=== PATIENT | female | born 1975 | race African-American/Black ===

== ENCOUNTER 2016-12-04 11:14 | Emergency (ER) ==
[2016-12-04] MEDS ORDERED: ASPIRIN PO STA (11:32)
[2016-12-04 11:44] LABS: MANUAL DIFF NEEDED? NO
[2016-12-04 11:46] LABS: BASO% 0.6 % (0.0-0.8); EOS# 0.14 X1000 (0.0-0.7); EOS% 1.6 % (0.0-10.0); HEMATOCRIT 36.5 % (37.0-47.0); IMM GRAN# 0.01 X1000 (0.0-0.04); IMM GRAN% 0.1 % (0.0-0.5); LYMPH# 3.34 X1000 (1.2-3.4); LYMPH% 37.1 % (20.5-51.1); MCH 27.8 PG (27-31); MCHC 32.9 g/dL (33-37); MCV 84.5 FL (81-99); MONO# 0.67 X1000 (0.11-0.59); MONO% 7.4 % (1.7-9.3); NEUT% 53.2 % (42.2-75.2); PLT 322 X1000 (130-400); RBC 4.32 XMIL (4.2-5.4)
--- NOTE | 2016-12-04 11:49 | PROVIDER DOCUMENTATION ---
HPI-Chest Pain - General Source: patient - History of Present Illness-CP Location: reports: other (left anterior, just below the breast) Chest Pain Radiation: reports: no radiation Quality of Pain: reports: stabbing Severity in ED: mild Onset/Duration: 3 days ago Timing: still present, intermittent Context/Activities at Onset: denies: light activity, moderate activity, vigorous activity, recent emotional stress, recent physical stress, recent trauma history, possible bad food, cold exposure, eating, out of country travel , rest, sleep, sexual activity Modifying Factors: improves with: breathing, coughing. worse with: analgesics, antacids, cold/heat therapy, defecating, eating, exercise, immobilization, lying down, massage, movement, other medication, palpation, rest, urinating, vomiting Associated Symptoms: denies: abdominal pain, back pain, diaphoresis, dizziness, edema, fatigue, fever/chills, headache, heartburn, nausea, rash, shortness of breath, swelling/lump in chest, syncope, vomiting, weakness Nitro Today/Relief: no nitro taken today Aspirin Treatment Today: no aspirin today Prior Chest Pain/Cardiac Workup: reports: no prior chest pain, no prior cardiac workup Similar Symptoms Previously?: No Recently Seen Here or By Another Healthcare Provider: No <Yazmin Bonilla - Last Filed: 12/04/16 14:11> <Azael Wallace - Last Filed: 12/04/16 14:14> - General Chief Complaint: Chest Pain Stated Complaint: CHEST PAIN Time Seen by Provider: 12/04/16 11:35 Allergies/Adverse Reactions: Patient Allergies Allergy/AdvReac Type Severity Reaction Status Date / Time latex Allergy Mild RASH Verified 12/04/16 11:23 Home Medications: Home Medication List Medication Instructions Recorded Confirmed Last Taken Type Azithromycin [Zithromax Z-Ton] 250 mg PO DIRECTED #1 pkg 07/19/16 Unknown Rx Benzonatate [Tessalon] 100 mg PO TID PRN PRN #20 capsule 07/19/16 Unknown Rx Famotidine [Pepcid] 20 mg PO DAILY #20 tablet 12/04/16 Unknown Rx Ibuprofen [Motrin] 800 mg PO Q8H PRN PRN #20 tablet 12/04/16 Unknown Rx Methocarbamol [Robaxin] 500 mg PO BID #14 tablet 12/04/16 Unknown Rx - History of Present Illness-CP Nature of Presenting Problem: 41 y/o AAF c hx of anxiety, no cardiac disease, c/o left anterior chest pain, worse with a deep breath or with coughing. Pain is intermittent, no radiation. Denies nausea, vomiting, diaphoresis, or sob. No recent illnesses. Pain is stabbing in nature, no pre-arrival treatments. Has not taken and aspirin today. Current ppd smoker. (Yazmin Bonilla) Review of Systems - Adult - REVIEW OF SYSTEMS - ADULT Constitutional: reports: no symptoms reported. denies: chills, fever, fatique Eyes: reports: no symptoms reported. denies: decreased vision, blurred vision, double vision, eye pain Ears, Nose, Mouth & Throat: reports: no symptoms reported. denies: ear pain, nose pain, throat pain Cardiovascular: reports: see HPI, chest pain. denies: irregular heart rate, palpitations Respiratory: reports: no symptoms reported. denies: cough, shortness of breath , wheezing Gastrointestinal: reports: no symptoms reported. denies: abdominal pain, diarrhea, nausea, vomiting Genitourinary: reports: no symptoms reported. denies: dysuria, discharge, frequency, incontinence Musculoskeletal: reports: no symptoms reported. denies: muscle aches Integumentary: reports: no symptoms reported. denies: rash Neurological: reports: no symptoms reported. denies: dizziness/vertigo, headache/migraines Psychiatric: reports: no symptoms reported Endocrine: reports: no symptoms reported Hematologic/Lymphatic: reports: no symptoms reported Allergic/Immunologic: reports: no symptoms reported All Other Systems: Reviewed and Negative <Yazmin Bonilla - Last Filed: 12/04/16 14:11> Past History - Adult - PAST MEDICAL HISTORY-ADULT Review of Records: reports: Old Records Reviewed, Nursing Assessment Review, Medications Reviewed, Social history reviewed & non-contributory. Major Childhood Illnesses: reports: denies history Cardiovascular: reports: denies history Respiratory: reports: denies history Gastrointestinal: reports: GERD Obstetrical/Gynecological: reports: denies history Genitourinary: reports: denies history Musculoskeletal: reports: denies history Neurological: reports: denies history Psychiatric: reports: anxiety Endocrine/Immune: reports: denies history Other Conditions: reports: denies history - PRIOR SURGERIES/PROCEDURES Surgical/Procedure History: reports: hysterectomy - IMMUNIZATION STATUS Childhood Immunizations: See Nurse Assessment Flu Vaccine: See Nurse Assessment - FAMILY HISTORY Family History: CVA/TIA - SOCIAL HISTORY Smoking: greater than 1 pack/day Provider spent 3-5 mins advising pt. on dangers of tobacco.: Discussed manners to quit use, and f/u contacts for add'l counseling. Substance Use: none/never Alcohol Use Frequency: never <Yazmin Bonilla - Last Filed: 12/04/16 14:11> Physical Exam-General - PHYSICAL EXAM-ADULT Initial Vital Signs Reviewed: Yes - CONSTITUTIONAL General Appearance: appears well, alert, no apparent distress - EYES Eyes: PERRL/EOMI, pink conjunctivae - HEAD, EARS, NOSE, MOUTH & THROAT HENMT: normocephalic/atraumatic, moist mucous membranes, normal ENT inspection - NECK Neck: non-tender, full range of motion, supple, normal inspection. negative: lymphadenopathy - RESPIRATORY Respiratory: chest non-tender, lungs clear, normal breath sounds, no pleuratic chest pain, no respiratory distress, no accessory muscle use. negative: respiratory distress, decreased breath sounds, accessory muscle use, crackles, rales, rhonchi, wheezing - CARDIOVASCULAR Cardiovascular: normal peripheral pulses, regular rate, rhythm, no edema, no gallop, no JVD, no murmur - GASTROINTESTINAL (ABDOMEN) Abdominal Exam: normal bowel sounds, non tender, soft, no organomegaly, no pulsatile mass. negative: abdominal bruit, abnormal bowel sounds, distended, guarding, rigid, rebound, tenderness - MUSCULOSKELETAL Back Exam: normal inspection Extremity: normal gait - SKIN Integumentary: normal color, normal turgor, warm/dry - NEUROLOGIC Neurologic: grossly normal, no motor/sensory deficits - PSYCHIATRIC Psych/Mental Status: normal mood/affect, normal thought content, normal thought process, oriented x 3 <Yazmin Bonilla - Last Filed: 12/04/16 14:11> Progress - XRAY 1 XRAY: Bilateral XRAY Study: Chest Impression: Abnormal (incrased marking at the right base, consistent with previous chest xray, more likely fibrosis than acute infiltrate per Dr. Still, radiology) <Yazmin Bonilla - Last Filed: 03/15/17 14:11> - EKG 1 Time of EKG reading by physician:: 11:23 EKG Read and Signed by:: Hector Shea Rate: 91 Rhythm: NSR [place]: normal QRS: normal NM Interval: normal ST Wave: normal 2 Time of EKG reading by physician:: 14:13 EKG Read and Signed by:: Hector Shea Rate: 78 Rhythm: NSR [place]: normal QRS: normal NM Interval: normal ST Wave: normal <Azael Wallace - Last Filed: 12/04/16 14:14> - PLAN OF CARE/RESULTS Progress/Plan/Lab Results: Vital Signs Temp Pulse Resp BP Pulse Ox 12/04/16 13:39 81 23 114/80 100 12/04/16 12:44 80 24 131/89 94 L 12/04/16 12:10 88 14 134/98 100 12/04/16 11:29 93 H 21 130/74 96 12/04/16 11:19 97.6 F 95 H 18 137/88 96 latex Allergy (Mild, Verified 12/04/16 11:23) RASH Azithromycin [Zithromax Z-Ton] 250 mg PO DIRECTED #1 pkg 07/19/16 Benzonatate [Tessalon] 100 mg PO TID PRN PRN #20 capsule 07/19/16 Laboratory 12/04/16 12/04/16 12/04/16 13:29 13:29 11:35 WBC RBC Hgb Hct MCV MCH MCHC RDW Std Deviation Plt Count MPV Immature Gran % (Auto) Neut % (Auto) Lymph % (Auto) [place] % (Auto) Eos % (Auto) Baso % (Auto) Immature Gran # (Auto) Neut # (Auto) Lymph # (Auto) [place] # (Auto) Eos # (Auto) Baso # (Auto) PT 12.2 INR 0.87 APTT (Factor Assay) 32.8 D-Dimer 0.26 Sodium Potassium Chloride Carbon Dioxide Anion Gap BUN Creatinine Estimated GFR/1.73 m2 BUN/Creatinine Ratio Glucose Calculated Osmolality Calcium Magnesium Total Bilirubin AST ALT Alkaline Phosphatase Creatine Kinase 63 Troponin T < 0.010 Mpq-G-Lswobttfalt Pept Total Protein Albumin Globulin Albumin/Globulin Ratio 12/04/16 12/04/16 12/04/16 11:35 11:35 11:35 WBC 9.00 RBC 4.32 Hgb 12.0 Hct 36.5 L MCV 84.5 MCH 27.8 MCHC 32.9 L RDW Std Deviation 17.7 H Plt Count 322 MPV 10.0 Immature Gran % (Auto) 0.1 Neut % (Auto) 53.2 Lymph % (Auto) 37.1 [place] % (Auto) 7.4 Eos % (Auto) 1.6 Baso % (Auto) 0.6 Immature Gran # (Auto) 0.01 Neut # (Auto) 4.79 Lymph # (Auto) 3.34 [place] # (Auto) 0.67 H Eos # (Auto) 0.14 Baso # (Auto) 0.05 PT INR APTT (Factor Assay) D-Dimer Sodium Potassium Chloride Carbon Dioxide Anion Gap BUN Creatinine Estimated GFR/1.73 m2 BUN/Creatinine Ratio Glucose Calculated Osmolality Calcium Magnesium Total Bilirubin AST ALT Alkaline Phosphatase Creatine Kinase Troponin T < 0.010 Qhw-A-Oqqsgidnkew Pept 24 Total Protein Albumin Globulin Albumin/Globulin Ratio 12/04/16 11:35 WBC RBC Hgb Hct MCV MCH MCHC RDW Std Deviation Plt Count MPV Immature Gran % (Auto) Neut % (Auto) Lymph % (Auto) [place] % (Auto) Eos % (Auto) Baso % (Auto) Immature Gran # (Auto) Neut # (Auto) Lymph # (Auto) [place] # (Auto) Eos # (Auto) Baso # (Auto) PT INR APTT (Factor Assay) D-Dimer Sodium 137 Potassium 3.4 L Chloride 104 Carbon Dioxide 23 L Anion Gap 10 BUN 9 Creatinine 0.6 Estimated GFR/1.73 m2 > 60 BUN/Creatinine Ratio 15 Glucose 102 Calculated Osmolality 273 Calcium 8.9 Magnesium 1.8 Total Bilirubin 0.20 AST 16 ALT 11 Alkaline Phosphatase 85 Creatine Kinase 68 Troponin T Lhc-T-Octtiugcidt Pept Total Protein 7.2 Albumin 4.0 Globulin 3.0 Albumin/Globulin Ratio 1.0 Orders Category Date Time Status Cardiac Monitoring DIRECTED Care 12/04/16 11:32 Active Oxygen Therapy- ED Nursing DIRECTED Care 12/04/16 11:32 Active Saline Loc NOW Care 12/04/16 11:32 Active CHEST-2 VIEWS [RAD] Stat Exams 12/04/16 11:32 Completed CBC WITH ELECTRONIC DIFF [HEME] Stat Lab 12/04/16 11:35 Completed CK PROFILE [SP CHEM] Stat Lab 12/04/16 11:35 Completed CK PROFILE [SP CHEM] Stat Lab 12/04/16 13:29 Completed COMPREHENSIVE METABOLIC PANEL [CHEM] Stat Lab 12/04/16 11:[address] D-DIMER [address] [COAG] Stat Lab 12/04/16 11:35 Completed MAGNESIUM [CHEM] Stat Lab 12/04/16 11:35 Completed PRO B-NATRIURETIC PEPTIDE Stat Lab 12/04/16 11:35 Completed [address]IME WITH INR PL [COAG] Stat Lab 12/04/16 11:[address] [COAG] Stat Lab 12/04/16 11:35 Completed TROPONIN T Stat Lab 12/04/16 11:35 Completed TROPONIN T Stat Lab 12/04/16 13:29 Completed Aspirin Med 12/04/16 11:32 Discontinued 325 mg PO STAT STA EKG [EKG] Stat Ther 12/04/16 11:32 Draft EKG [EKG] Stat Ther 12/04/16 13:07 Draft (Yazmin Bonilla) Departure - Departure Time of Disposition Order: 14:11 Certified Medical Emergency: Emergent <Yazmin Bonilla - Last Filed: 12/04/16 14:11> <Azael Wallace - Last Filed: 12/04/16 14:14> - Departure DIAGNOSIS: Pleuritic chest pain, Chest pain at rest Disposition: HOME 01 Condition: Stable Additional Instructions: Follow up with Dr. Oshea, cardiology ED Follow Up Instructions: You have been treated by a care provider in the Emergency Department. These instructions are being provided to you so you can have an understanding of how to care for yourself upon discharge. Upon discharge from the Emergency Department, you are responsible for making arrangements for follow-up care by a physician of your choice. Take all prescribed medications as directed. Return to the Emergency Department immediately for any new or worsening symptoms. You may call the Physician Referral phone number at [phone] to obtain a list of Physicians who are taking new patients. Prescriptions: Ibuprofen [Motrin] 800 mg PO Q8H PRN PRN #20 tablet PRN Reason: inflammation Famotidine [Pepcid] 20 mg PO DAILY #20 tablet Methocarbamol [Robaxin] 500 mg PO BID #14 tablet Referrals: Glen Barlow MD [Primary Care Provider] - Benitez Oshea MD [STAFF PHYSICIAN] - Attestation - Physician/ FREDI Attestation Patient care was provided by Advanced Practice Provider:: Yes Advanced Practice Provider:: Yazmin Bonilla Advanced Practice Provider documentation review:: The Mid-level provider documentation, treatment plan and medical decision making was reviewed by the physician who agrees with all treatment and medical decision making by the MLP. <Yazmin Bonilla - Last Filed: 12/04/16 14:11> Physician Attestation
[2016-12-04 12:00] LABS: INR 0.87 (0.86-1.15); PROTIME 12.2 Seconds (12.1-15.5)
[2016-12-04 12:01] LABS: PTT PL 32.8 Seconds (22.6-43.9)
[2016-12-04 12:07] LABS: AGAP 10; ALKALINE PHOSPHATASE 85 U/L (32-104); BUN 9 mg/dL (8-22); CALCIUM 8.9 mg/dL (8.8-10.2); CHLORIDE 104 mmol/L (98-107); CK PROFILE 68 U/L (24-173); COSMO 273; GOT 16 U/L (10-30); GPT 11 U/L (10-36); MAGNESIUM 1.8 mg/dL (1.5-2.7); POTASSIUM 3.4 mmol/L (3.5-5.1); SODIUM 137 mmol/L (136-145); TCO2 23 mmol/L (25-35); TOTAL PROTEIN 7.2 g/dL (6.3-8.3)
--- NOTE | 2016-12-04 12:46 | Diag Imaging Result Document ---
PROCEDURE NAME: CHEST-2 VIEWS - 12/04/2016 FRONTAL AND LATERAL CHEST, TWO VIEWS: COMPARISON: 07/19/2016. FINDINGS: The lungs are well expanded. The heart is not enlarged. The vessels are not distended. No pleural effusions. Nodular parenchyma in the right base persist. There may be associated fibrosis. No consolidation. Mild scoliosis. IMPRESSION: Increased markings in the right base have an appearance similar to the prior exam and thus may be fibrosis rather than an acute infiltrate.
[2016-12-04 13:39] VITALS: BP 114/80
--- NOTE | 2016-12-04 13:51 | EKG Report ---
Test Performed on : 12/04/2016 11:23:23 AM Test Reason : CHEST PAIN Blood Pressure : / mmHG Vent. Rate : 091 BPM Atrial Rate : 091 BPM P-R Int : 156 ms QRS Dur : 074 ms QT Int : 390 ms P-R-T Axes : 054 043 040 degrees QTc Int : 479 ms Normal sinus rhythm. Normal ECG When compared with ECG of 19-JUL-2016 19:15, No significant change was found Unconfirmed Result
--- NOTE | 2016-12-04 14:04 | EKG Report ---
Test Performed on : 12/04/2016 1:55:07 PM Test Reason : cp Blood Pressure : / mmHG Vent. Rate : 078 BPM Atrial Rate : 078 BPM P-R Int : 166 ms QRS Dur : 070 ms QT Int : 398 ms P-R-T Axes : 049 053 048 degrees QTc Int : 453 ms Normal sinus rhythm. Normal ECG When compared with ECG of 04-DEC-2016 11:23, (Unconfirmed) No significant change was found Unconfirmed Result
== END 2016-12-04 14:45 | disposition home or self-care (01) ==
LOC: P.ED 11:14
DX: R07.81 Pleurodynia (principal); R05 Cough; F17.210 Nicotine dependence, cigarettes, uncomplicated; Z71.6 Tobacco abuse counseling; Z79.899 Other long term (current) drug therapy; Z82.3 Family history of stroke
CPT/HCPCS: 71020; 80053; 82550; 83735; 83880; 84484; 85025; 85379; 85610; 85730; 93005; 99284

== ENCOUNTER 2018-12-14 15:21 | Inpatient (IN) ==
[2018-12-14] MEDS ORDERED: DUONEB (A & A) INH ONE (16:19)
[2018-12-14 16:29] LABS: BILIRUBIN URINE 2+ (NEGATIVE); BLOOD URINE TRACE (NEGATIVE); CLARITY CLEAR (CLEAR); COLOR YELLOW; GLUCOSE URINE NEGATIVE (NEGATIVE); KETONE URINE TRACE mg/dL (NEGATIVE); LEUKOCYTES URINE TRACE (NEGATIVE); NITRITE URINE NEGATIVE (NEGATIVE); PROTEIN URINE TRACE mg/dL (NEGATIVE); SP GRAVITY URINE 1.015; UROBILINOGEN URINE 4 mg/dL
[2018-12-14 16:30] LABS: URINE BACTERIA 1+ /HFP; URINE CAST NONE SEEN /LPF; URINE CRYSTAL NONE SEEN /HPF; URINE EPITHELIAL CELLS <10 /HPF (<10); URINE RBC <10 /HPF (<10); URINE SOURCE CLEAN CATCH; URINE WBC <10 /HPF (<10); URINE YEAST NONE SEEN /HPF
--- NOTE | 2018-12-14 16:43 | Diag Imaging Result Doc PS360 ---
EXAM: CHEST-2 VIEWS HISTORY: HX COPD/ASTHMA CAME W/ PRODUCTIVE COUGH TECHNIQUE: Chest two views COMPARISON: 12/04/2016 FINDINGS: The lungs are hyperexpanded. The heart is not enlarged. The vessels are not distended. There are mild increased markings in the right lung base similar to the prior study and consistent with scarring. No consolidation. No pleural effusions. IMPRESSION: No pneumonia. Electronically signed by Lokesh Still 12/14/2018 4:41 PM
--- NOTE | 2018-12-14 16:44 | Diag Imaging Result Doc PS360 ---
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 FINDINGS: No free air beneath the diaphragm. There is stool throughout the colon. No organomegaly. No foreign body. There are several pelvic phleboliths. IMPRESSION: Constipation Electronically signed by Lokesh Still 12/14/2018 4:42 PM
[2018-12-14 16:50] LABS: BASO# 0.04 X1000 (0.0-0.2); BASO% 0.3 % (0.0-0.8); EOS# 0.16 X1000 (0.0-0.7); EOS% 1.4 % (0.0-10.0); HEMATOCRIT 39.6 % (37.0-47.0); HEMOGLOBIN 13.8 g/dL (12.0-16.0); IMM GRAN# 0.02 X1000 (0.0-0.04); IMM GRAN% 0.2 % (0.0-0.5); LYMPH# 2.79 X1000 (1.2-3.4); LYMPH% 24.1 % (20.5-51.1); MCHC 34.8 g/dL (33-37); MCV 83.2 FL (81-99); MONO% 8.6 % (1.7-9.3); MPV 9.7 FL (7.4-10.4); NEUT# 7.57 X1000 (1.4-6.5); NEUT% 65.4 % (42.2-75.2); PLT 256 X1000 (130-400); RBC 4.76 XMIL (4.2-5.4); WBC 11.58 X1000 (4.8-10.8)
[2018-12-14 17:05] LABS: INFLUENZA A NEGATIVE (NEGATIVE); INFLUENZA B NEGATIVE (NEGATIVE)
[2018-12-14 17:12] LABS: AGAP 14; ALBUMIN 3.9 g/dL (3.5-5.0); ALKALINE PHOSPHATASE 472 U/L (32-104); BUN 6 mg/dL (8-22); CALCIUM 9.1 mg/dL (8.8-10.2); CHLORIDE 100 mmol/L (98-107); COSMO 277; CREATININE 0.6 mg/dL (0.5-0.9); ESTIMATED GFR > 60; GLUCOSE 106 mg/dL (70-104); GOT 341 U/L (10-30); GPT 656 U/L (10-36); POTASSIUM 3.7 mmol/L (3.5-5.1); SODIUM 140 mmol/L (136-145); TCO2 26 mmol/L (25-35); TOTAL PROTEIN 8.1 g/dL (6.3-8.3)
[2018-12-14] MEDS ORDERED: NS 1,000 ML IV ONE (17:22)
--- NOTE | 2018-12-14 18:03 | PROVIDER DOCUMENTATION ---
This chart was entered by Damaris Rodriguez Scribe, acting as scribe for Davina Brower MD. HPI-General Adult - General Chief Complaint: Back Pain Stated Complaint: BACK PAIN Time Seen by Provider: 12/14/18 16:05 Source: patient Allergies/Adverse Reactions: Patient Allergies Allergy/AdvReac Type Severity Reaction Status Date / Time latex Allergy Mild RASH Verified 12/04/16 11:23 Home Medications: Home Medication List Medication Instructions Recorded Confirmed Last Taken Type Azithromycin [Zithromax Z-Ton] 250 mg PO DIRECTED #1 pkg 07/19/16 Unknown Rx Benzonatate [Tessalon] 100 mg PO TID PRN PRN #20 capsule 07/19/16 Unknown Rx Famotidine [Pepcid] 20 mg PO DAILY #20 tablet 12/04/16 Unknown Rx Ibuprofen [Motrin] 800 mg PO Q8H PRN PRN #20 tablet 12/04/16 Unknown Rx Methocarbamol [Robaxin] 500 mg PO BID #14 tablet 12/04/16 Unknown Rx Azithromycin [Zithromax Z-Ton] 250 mg PO DIRECTED #1 pkg 12/14/18 Unknown Rx Prednisone 40 mg PO DAILY 5 Days #5 tab 12/14/18 Unknown Rx - History of Present Illness -Gen Adult Nature of Presenting Problems: 43 yof presents to ed with cc of left flank pain. denies dsyuria. Pt also reports 2 day of cough, congestion. Reports achy with yellow production. 4/10 pain non radiating. Denies dysuria. Pt also reports to be sob and weak. Review of Systems - Adult - REVIEW OF SYSTEMS - ADULT Constitutional: reports: other (weakness). denies: chills, fever, fatique Eyes: reports: no symptoms reported Ears, Nose, Mouth & Throat: reports: sinus problem. denies: ear pain, throat pain Cardiovascular: denies: chest pain, irregular heart rate, orthopnea, syncope Respiratory: reports: cough, shortness of breath. denies: dyspnea on exertion, pleurisy, wheezing Gastrointestinal: denies: abdominal pain, diarrhea, nausea, vomiting Genitourinary: reports: flank pain. denies: discharge, frequent UTI's, hematuria, hesitency, incontinence, urinary retention, urgency Musculoskeletal: denies: bone pain, back pain, frequent leg cramps, joint pain, joint swelling Integumentary: reports: no symptoms reported Neurological: reports: no symptoms reported Psychiatric: reports: no symptoms reported Endocrine: reports: no symptoms reported Hematologic/Lymphatic: reports: no symptoms reported Allergic/Immunologic: reports: no symptoms reported All Other Systems: Reviewed and Negative Past History - Adult - PAST MEDICAL HISTORY-ADULT Review of Records: reports: Nursing Assessment Review, Medications Reviewed Major Childhood Illnesses: reports: denies history Cardiovascular: reports: denies history Respiratory: reports: denies history Gastrointestinal: reports: GERD Obstetrical/Gynecological: reports: denies history Genitourinary: reports: denies history Musculoskeletal: reports: denies history Neurological: reports: denies history Psychiatric: reports: anxiety Endocrine/Immune: reports: denies history Other Conditions: reports: denies history - PRIOR SURGERIES/PROCEDURES Surgical/Procedure History: reports: hysterectomy - IMMUNIZATION STATUS Childhood Immunizations: See Nurse Assessment Flu Vaccine: See Nurse Assessment - FAMILY HISTORY Family History: CVA/TIA - SOCIAL HISTORY Smoking: cigarettes, greater than 1 pack/day Provider spent 3-5 mins advising pt. on dangers of tobacco.: Discussed manners to quit use, and f/u contacts for add'l counseling. Substance Use: none/never Physical Exam-General - PHYSICAL EXAM-ADULT Initial Vital Signs Reviewed: Yes - CONSTITUTIONAL General Appearance: appears well, alert, no apparent distress - EYES Eyes: PERRL/EOMI, pink conjunctivae - HEAD, EARS, NOSE, MOUTH & THROAT HENMT: moist mucous membranes, normal ENT inspection, TMs normal, pharynx normal - NECK Neck: non-tender, full range of motion, supple, normal inspection - RESPIRATORY Respiratory: chest non-tender, no pleuratic chest pain, no respiratory distress, no accessory muscle use, wheezing (expiratory). negative: crackles, rales, rhonchi, stridor - CARDIOVASCULAR Cardiovascular: normal peripheral pulses, regular rate, rhythm, no edema, no gallop, no JVD, no murmur - GASTROINTESTINAL (ABDOMEN) Abdominal Exam: normal bowel sounds, non tender, soft, no organomegaly, no pulsatile mass - LYMPHATIC Lymphatic: no adenopathy - MUSCULOSKELETAL Back Exam: normal inspection, no CVA tenderness, no vertebral tenderness Extremity: normal range of motion, non-tender, normal gait, normal inspection - SKIN Integumentary: normal color, normal turgor, warm/dry - NEUROLOGIC Neurologic: grossly normal - PSYCHIATRIC Psych/Mental Status: normal mood/affect, normal thought content, normal thought process, oriented x 3 Progress - PLAN OF CARE/RESULTS Progress/Plan/Lab Results: Vital Signs - 8 hr 12/14/18 15:41 Temperature 98.3 F Pulse Rate 93 H Respiratory Rate 18 Blood Pressure 104/65 Orders Category Date Time Status ua [URINALYSIS PL W/POSS RFLX CULT] [URINALYSIS] Stat Lab 12/14/18 15:47 Recei leanne Result Diagrams: 12/14/18 16:30 12/14/18 16:30 - REASSESSMENT Reassessment #1 Time Reassessed: 17:04 Status: improving (DIAGNOSIS: COPD EXACERBATION + CONSTIPATION + ELEVATED LIVER ENZYMES (LIKELY 2/2 TO APAP INGESTION) REVIEW OF LABS REVEALING ELEVATED LIVER ENZYMES; REENGAGED WITH PATIENT SHE HAS BEEN TAKING ABOUT 4G OF TYLENOL FOR THE PAST 3 DAYS (SHE THINKS). STATES SHE TAKES IT TWICE EACH DAY AND EACH TIME IS 4 PILLS AND EACH PILL IS 500MG. WILL GET APAP/SALICYCIC/URINE DRUG SCREEN) Reassessment #2 Time Reassessed: 17:22 Status: other Reassessment #3 Time Reassessed: 17:50 Status: other (SPOKE TO DR. OCAMPO; WILL START NAC AND IF APAP LEVEL LOW OR DEANN L; WILL D/C NAC. WILL GO OBSERVATION AND IF PATIENT DETELERATES, WILL GO INPATIENT STATES. STILL PENDING APAP/SALYCAIC/GGT WELL RUQ US. WILL PLACE IN OBSERVATION ORDERS.) Reassessment #4 Time Reassessed: 18:01 Status: other (SPOKE TO PATIENT SHE HAS HSITORY OF HYPERTENSION, FIBROMYALGIA (SHE TAKES NORCO ACCORDING TO HER AND "SOME NERVE PAIN). PATIENT IS NOT SURE WHAT THE NAME OF HYPERTENSION RX SHE TAKES BUT OTHER MEDICATION BUT ONLY KNOWS SHE IS PRESCRIBED NORCO. I HAVE INFORMED HER TO HAVE FAMILY MEMBER TAKE PICTURES OF THE BOTTLES WITH DRUG NAME. I HAVE INFORMED HER WE WILL HOLD OFF NORCO WELL.) - XRAY 1 XRAY Study: Chest ([facility] [address], [address], [place] [id number] Department of Imaging Patient: ARNALDO PATE Date: 12/14/18MR#: [id number] : 1975ADM Status: REG ERAcct#: [id number] Age/Sex: 43/FRoom/Bed: Loc: P.ED Ordering Physician: Davina Brower MD Family Physician: Glen Barlow MD Reason for Procedure: HX COPD/ASTHMA CAME W/ PRODUCTIVE COUGH Signed EXAM: CHEST-2 VIEWS HISTORY: HX COPD/ASTHMA CAME W/ PRODUCTIVE COUGH TECHNIQUE: Chest two views COMPARISON: 12/04/2016 FINDINGS: The lungs are hyperexpanded. The heart is not enlarged. The vessels are not distended. There are mild increased markings in the right lung base similar to the prior study and consistent with scarring. No consolidation. No pleural effusions. IMPRESSION: No pneumonia. Electronically signed by Lokesh Still 12/14/2018 4:41 PM 12/14/18 1641 Interpreting Physician: Lokesh Still MD Dictated Date/Time: 12/14/18 1640 cc: Davina Brower MD; Glen Barlow MD), Abdomen ([facility] [address] [facility], [address], [place] [phone] Department of Imaging Patient: ARNALDO PATE Date: 12/14/18MR#: [id number] : 1975ADM Status: REG ERAcct#: [id number] Age/Sex: 43/FRoom/Bed: Loc: P.ED Ordering Physician: Davina Brower MD Family Physician: Glen Barlow MD Reason for Procedure: L FLANK CONSTANT ACHY NO RADIATING; NEG CVA TENDER Signed 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 FINDINGS: No free air beneath the diaphragm. There is stool throughout the colon. No organomegaly. No foreign body. There are several pelvic phleboliths. IMPRESSION: Constipation Electronically signed by Lokesh Still 12/14/2018 4:42 PM 12/14/18 1642 Interpreting Physician: Lokesh Still MD Dictated Date/Time: 12/14/18 164 cc: Davina Brower MD; Glen Barlow MD) Departure - Departure Date of Disposition Decision: 12/14/18 Time of Disposition Decision: 17:05 DIAGNOSIS: COPD exacerbation, Constipation, Unintentional Tylenol overdose Disposition: HOME 01 Certified Medical Emergency: Emergent Condition: Stable Additional Freetext Instructions: ED Follow Up Instructions: You have been treated by a care provider in the Emergency Department. These instructions are being provided to you so you can have an understanding of how to care for yourself upon discharge. Upon discharge from the Emergency Department, you are responsible for making arrangements for follow-up care by a physician of your choice. Take all prescribed medications as directed. Return to the Emergency Department immediately for any new or worsening symptoms. You may call the Physician Referral phone number at [phone] to obtain a list of Physicians who are taking new patients and follow up within 7 days. Prescriptions: Prednisone 40 mg PO DAILY 5 Days #5 tab Azithromycin [Zithromax Z-Ton] 250 mg PO DIRECTED #1 pkg Referrals and Follow-Ups: Glen Barlow MD [Primary Care Provider] - - Critical Care Note This patient required my direct & personal management of CC.: No Attestation - Physician/ FREDI Attestation Patient care was provided by Advanced Practice Provider:: No The physician spent face to face time with patient:: Yes Advanced Practice Provider documentation review:: Supervising physician onsite and consulted in the evaluation and care of this patient. The physician did have a face to face encounter with the patient. This chart was documented by the indicated scribe, (Damaris Rodriguez, Vincent) and accurately reflects the services I performed and decisions made by me, Davina Brower MD, as attested by the provider's signature.
[2018-12-14] MEDS ORDERED: D5W IV ONE (18:15)
[2018-12-14] MEDS ORDERED: ACETADOTE IV ONE (18:15)
[2018-12-14] MEDS ORDERED: PREDNISONE PO ONE (18:25)
[2018-12-14] MEDS ORDERED: ZITHROMAX PO ONE (18:25)
[2018-12-14] MEDS ORDERED: MIRALAX PO ONE (18:26)
[2018-12-14 18:28] LABS: ACETAMINOPHEN < 1.2 ug/mL (10-30); GGT 480 U/L (7-32); SALICYLATES < 3.00 mg/dL (3-10)
--- NOTE | 2018-12-14 18:32 | Diag Imaging Result Doc PS360 ---
EXAM: US GB < RUQ (LIMITED) HISTORY: ELEVATED LIVER ENZYMES T.B. 3.7; AST 300 ALT 600 TECHNIQUE: Right upper quadrant ultrasound COMPARISON: None. FINDINGS: Normal pancreatic head. The majority of the pancreas is obscured. No aortic aneurysm. Normal inferior vena cava. No focal hepatic abnormality although there is fatty infiltration. Normal right kidney. No hydronephrosis. No ascites. There are many stones within the gallbladder. The gallbladder is overly distended measuring at least 18 cm in length. The wall is not thickened. The common bile duct measures 5 mm. IMPRESSION: Bullard distended gallbladder containing multiple small stones, but no wall thickening. Fatty liver Electronically signed by Lokesh Still 12/14/2018 6:30 PM
[2018-12-14] MEDS ORDERED: ZITHROMAX ONE (19:25)
[2018-12-14] MEDS ORDERED: PREDNISONE ONE (19:25)
[2018-12-14] MEDS ORDERED: MIRALAX ONE (19:25)
[2018-12-14] MEDS: ZOSYN 3.375 GM in NS 50 ML IV SCH (19:47)
--- NOTE | 2018-12-14 19:52 | HISTORY AND PHYSICAL ---
INITIAL COMPLAINT: Abdominal pain and back pain. DATE OF SERVICE: 12/14/2018. HISTORY OF PRESENT ILLNESS: Per ER records, she is 43. History of hypertension. Complaining of left flank pain, but no dysuria, but she also has cough and congestion, but then she also reports nausea, vomiting, abdominal pain. Her symptoms are kind of, in a sense, all over the place. Her triage complaints were low back pain for 2 days. Her workup really initially was nonspecific; however, when we got lab data back, she had leukocytosis, elevated liver enzymes, and an elevated total bilirubin level. She denies any regular alcohol use. She does admit to some intermittent abdominal pain. She has had episodes several times off and on. She has had these issues off and on for several months. No gallbladder issues previously. Workup suggested acute hepatitis. There was concern over Tylenol toxicity because she has been taking 2 g of Tylenol daily for the last 4 days, but that level was normal, and her ultrasound revealed cholelithiasis with a distended gallbladder, so she was admitted for further treatment. Patient was admitted for treatment. PAST MEDICAL HISTORY: Hypertension. Denies cardiac disease. Denies hypothyroidism. Really fairly nonspecific. PAST SURGICAL HISTORY: She has had a bilateral tubal ligation. FAMILY HISTORY: Gallbladder disease in grandmother. SOCIAL HISTORY: No tobacco or ethanol. ALLERGIES: Latex. MEDICATIONS: List is being completed. PHYSICAL EXAMINATION: VITAL SIGNS: Blood pressure is 104/65, heart rate 72, respiratory rate 20, temperature 98.3 degrees. GENERAL: A well developed female in no acute distress. HEAD: Normocephalic and atraumatic. EYES: Pupils equal, round, and reactive to light. Extraocular movements are intact. EARS, NOSE, THROAT: He has moist mucous membranes. NECK: Supple. CARDIOVASCULAR: Regular rate and rhythm. No murmurs, gallops, or rubs. PULMONARY: Bilateral breath sounds, clear to auscultation. GI: She does have tenderness in her epigastrium, right upper quadrant to some mild degree, but no rebound or guarding. LABORATORY DATA: White count 11. Her AST and ALT were 341 and 656, alkaline phosphatase 472, total bilirubin 3.7. Acetaminophen level point 0.2. Abdominal ultrasound showed an overly distended gallbladder with several stones. ASSESSMENT: This is a pleasant female who has classic association with cholelithiasis. She has a distended gallbladder with numerous stones, although no fercho cholecystitis. I do think she is at risk for that, and I think she is symptomatic from it at this point, plus there is concern that she has choledocholithiasis since she has elevated transaminases, and she may have symptomatic choledocholithiasis. 1. Symptomatic cholelithiasis, rule out choledocholithiasis. We will initiate intravenous fluids, antibiotics, antiemetics, pain medication, and transfer her to [facility] for surgical evaluation, plus or minus she may need a gastrointestinal evaluation, but we will wait on surgical evaluation first, and evaluation for an intraoperative cholangiogram if Dr. Alexander sees fit. We will evaluate for hepatitis as well. 2. Hypertension. Appears to be relatively stable and we will continue to monitor. DISPOSITION: Pending her clinical status. cc: MD Glen Monsivais MD Lynn R. Buckner, MD
[2018-12-14 20:31] LABS: UR AMPHETAMINES QUAL NONE DETECTED (NONE DETECT); UR BARBITUATES QUAL NONE DETECTED (NONE DETECT); UR BENZODIAZEPIN QUAL PRESUMPTIVE POSITIVE (NONE DETECT); UR CANNABINOIDS QUAL NONE DETECTED (NONE DETECT); UR COCAINE QUAL NONE DETECTED (NONE DETECT); UR METHADONE QUAL NONE DETECTED (NONE DETECT); UR METHAMPHETAMINE QUAL NONE DETECTED (NONE DETECT); UR OPIATES QUAL PRESUMPTIVE POSITIVE (NONE DETECT); UR OXYCODONE QUAL NONE DETECTED (NONE DETECT); UR PCP QUAL NONE DETECTED (NONE DETECT); UR PROPOXYPHENE QUAL NONE DETECTED (NONE DETECT); UR TCA QUAL NONE DETECTED (NONE DETECT)
[2018-12-14] MEDS ORDERED: COLACE PO SCH (21:00)
[2018-12-14] MEDS: SODIUM CHLORIDE 0.9% INJ SCH (22:45)
[2018-12-14] MEDS: PROTONIX IV SCH (22:46)
[2018-12-14] MEDS: NS 1,000 ML IV SCH (22:46)
[2018-12-15] MEDS: ZOSYN 3.375 GM in NS 50 ML IV SCH ×4 (01:56→20:27)
[2018-12-15] MEDS ORDERED: FLU VACCINE IM ONE (02:49)
[2018-12-15] MEDS ORDERED: PNEUMOVAX 23 IM ONE (02:52)
[2018-12-15] MEDS: NS 1,000 ML IV SCH ×2 (08:52→20:27)
[2018-12-15] MEDS ORDERED: ZITHROMAX PO SCH (09:00)
[2018-12-15] MEDS ORDERED: PREDNISONE PO SCH (09:00)
[2018-12-15 09:26] LABS: BASO# 0.07 X1000 (0.0-0.2); BASO% 0.5 % (0.0-0.8); EOS# 0.02 X1000 (0.0-0.7); EOS% 0.1 % (0.0-10.0); HEMATOCRIT 38.5 % (37.0-47.0); IMM GRAN# 0.04 X1000 (0.0-0.04); IMM GRAN% 0.3 % (0.0-0.5); LYMPH# 3.01 X1000 (1.2-3.4); LYMPH% 21.7 % (20.5-51.1); MCH 28.3 PG (27-31); MCHC 33.8 g/dL (33-37); MCV 83.9 FL (81-99); MONO% 7.9 % (1.7-9.3); MPV 10.3 FL (7.4-10.4); NEUT# 9.64 X1000 (1.4-6.5); NEUT% 69.5 % (42.2-75.2); PLT 253 X1000 (130-400); RBC 4.59 XMIL (4.2-5.4); RDW 15.9 % (11.5-14.5); WBC 13.88 X1000 (4.8-10.8)
[2018-12-15] MEDS ORDERED: ROBAXIN PO PRN (09:47)
[2018-12-15 09:48] LABS: AGAP 12; ALB/GLOB RATIO 0.9; ALBUMIN 3.5 g/dL (3.5-5.0); ALKALINE PHOSPHATASE 390 U/L (32-104); BUN 7 mg/dL (8-22); CALCIUM 8.8 mg/dL (8.8-10.2); CHLORIDE 105 mmol/L (98-107); COSMO 275; CREATININE 0.6 mg/dL (0.5-0.9); ESTIMATED GFR > 60; GLUCOSE 87 mg/dL (70-104); GOT 228 U/L (10-30); GPT 508 U/L (10-36); POTASSIUM 3.9 mmol/L (3.5-5.1); SODIUM 139 mmol/L (136-145); TCO2 22 mmol/L (25-35); TOTAL BILIRUBIN 3.09 mg/dL (0.20-1.00); TOTAL PROTEIN 7.3 g/dL (6.3-8.3)
[2018-12-15] MEDS: MORPHINE IV PRN ×3 (12:06→20:49)
--- NOTE | 2018-12-15 16:07 | GENERAL SURGERY CONSULTATION ---
DATE: 12/15/2018 REASON FOR CONSULTATION: Symptomatic cholelithiasis. HISTORY OF PRESENT ILLNESS: This is a 43-year-old female with a 2-day history of constant right upper quadrant pain radiating around to her back with associated nausea, vomiting, and subjective fever. No exacerbating or relieving factors. No diarrhea or constipation. Her last bowel movement was yesterday. No prior episodes similar to this. PAST MEDICAL HISTORY: Tubal , hypertension. PAST SURGICAL HISTORY: 1. Surgery for tubal . 2. Bilateral tubal ligation. 3. Surgery on her feet. ALLERGIES: Latex. SOCIAL HISTORY: Negative tobacco or alcohol. FAMILY HISTORY: Reviewed and noncontributory. HOME MEDICATIONS: Robaxin. CURRENT MEDICATIONS: Robaxin, Protonix, Zosyn. REVIEW OF SYSTEMS: Ten systems reviewed and negative except as noted above. PHYSICAL EXAMINATION: Vital Signs: Temperature 98.7 degrees, pulse 76, respirations 20, blood pressure 129/77, O2 saturation 98%. General: Well-developed, well-nourished female in no distress, who looks her stated age. HEENT: Normocephalic, atraumatic. Extraocular muscles intact. Pupils equal, round, reactive to light. Sclerae anicteric. Moist mucous membranes. Hearing grossly normal. Neck: Supple. No thyromegaly. CV: Regular rate and rhythm. Respiratory: Bilateral equal breath sounds. No work of breathing. Gastrointestinal: Soft, nondistended. Minimally tender in right upper quadrant. No rebound or guarding. No organomegaly or mass. No hernias. Extremities: No clubbing, cyanosis, or edema. Skin: Warm and dry. No rash. Musculoskeletal: Moves all extremities equally and well. LABORATORY: White cell count 13.9, hemoglobin 13, hematocrit 38, platelet count 253,000. Electrolytes reviewed and notable for total bilirubin of 3.09, AST 228, ALT 508, alkaline phosphatase 390, GGT 480. Urinalysis reviewed and unremarkable. IMAGING: An abdominal ultrasound was reviewed and shows numerous gallstones in the gallbladder and which it is also overly distended at 18 cm in length. However, the wall is not thickened. Common bile duct measures 5 mm. ASSESSMENT AND PLAN: This is a 43-year-old female with gallstones, at least symptomatic cholelithiasis and possible early acute cholecystitis. We will make her NPO tonight and plan laparoscopic cholecystectomy with cholangiogram tomorrow. I discussed the risks, benefits, alternatives with her including bleeding, infection, injury to surrounding organs such as the bile duct or intestines, and other imponderables. She understands and agrees to proceed. cc: Jim Loo MD
--- NOTE | 2018-12-15 17:52 | PROGRESS NOTE ---
DATE: 12/15/2018 SUBJECTIVE: This is a 43-year-old with history of hypertension, complaining of left flank pain, but no dysuria, also cough and congestion. Reported nausea, vomiting, abdominal pain. Her symptoms were in a sense all over the place. Complaining of pain in her back as well. In the end, it appears that she has symptomatic cholelithiasis, and so I think the plan is for surgery tomorrow. OBJECTIVE: General: On exam today, she is awake and alert. Vital Signs: Temperature 98.7 degrees, pulse 75, respirations 20, blood pressure 127/85. Eyes: Pupils are equal and round. Lungs: Clear in all lung arce. Cardiovascular: Regular rhythm and rate without murmur or S3. Abdomen: She has some tenderness in the epigastric area. LABS: White count is 13,880, hematocrit is 38, platelet count is 253,000. Sodium 139, potassium 3.9, chloride 105, BUN 7, creatinine 0.6, and as noted her liver enzymes seem to have come down a bit. She had elevation of GGT of 480, AST of 341, ALT 656, and alkaline phosphatase was 472. Her urine drug screen is positive for opiates and positive for benzodiazepines. cc: Luis Paulino MD
--- NOTE | 2018-12-15 17:54 | PROGRESS NOTE ---
DATE: 12/15/2018 SUBJECTIVE: A patient of Dr. Glen Barlow. A 43-year-old with history of hypertension complaining of left flank pain, but no dysuria. Also a cough and congestion, reported nausea, vomiting, and abdominal pain. Her triage complaints were low back pain for 2 days. Workup initially was nonspecific. However, we got the data back, and had leukocytosis, elevated liver enzymes and elevated total bilirubin. Denies any regular alcohol use. She does admit to some intermittent abdominal pain in the past. She has had episodes several times off and on. She has had 3 episodes off and on for several months. No gallbladder issues previously. Workup suggested acute hepatitis. There was concern of Tylenol toxicity because she was taking 2 g of Tylenol daily for 4 days, but her level was normal. Her ultrasound revealed cholelithiasis and distended gallbladder so admitted for further evaluation and treatment. She appears to have symptomatic cholelithiasis and need to rule out choledocholithiasis. Continue present antibiotics and IV fluids and antiemetics. Surgery to evaluate. OBJECTIVE: On exam today, temperature 98.7 degrees, pulse 75, respirations 20, and blood pressure 127/85. Pupils are equal and round. Lungs are clear in all lung arce. Cardiovascular exam with regular rhythm and rate without murmur or S3. Abdomen is soft. Skin is warm and dry. LABORATORY: White blood cell count 61574, hematocrit is 38, and platelet count is 253,000. Sodium 139, potassium 3.9, chloride 105, bicarb 22, BUN 7, creatinine 0.6. Transaminases have come down. GGT was 480's down to 228. ALT 656 down to 508. AST 341 to 228. it did go up a little bit to 508. Her alkaline phosphatase did go down from 472 to 390. The drug screen positive for benzodiazepines and opiates. Her chest x-ray had no pneumonia. No infiltrate. No acute pathology. Abdominal x-ray showed some constipation. Abdominal ultrasound show overly distended gallbladder containing multiple stones, but no wall thickening. Fatty liver appreciated. IMPRESSION AND PLAN: Looking over her orders, she is getting morphine 2 mg IV q.4 hours. She is on Robaxin 500 mg b.i.d. p.r.n. She did get her flu vaccination and pneumococcal vaccination. She is on Zofran 4 mg IV q.4 hours p.r.n. nausea, Protonix 40 mg 24 hours. Zosyn 3.375 g IV q.6. cc: Luis Paulino MD MTDD
[2018-12-15] MEDS: PROTONIX IV SCH ×2 (20:48→20:51)
[2018-12-15] MEDS: SODIUM CHLORIDE 0.9% INJ SCH ×2 (20:48→20:51)
[2018-12-16] MEDS: MORPHINE IV PRN ×5 (01:01→20:44)
[2018-12-16] MEDS: ZOSYN 3.375 GM in NS 50 ML IV SCH ×4 (01:04→18:37)
[2018-12-16] MEDS: NS 1,000 ML IV SCH ×3 (05:52→20:46)
[2018-12-16] MEDS ORDERED: SENSORCAINE 0.5%-EPI 1:200,000 ONE (07:21)
[2018-12-16] MEDS ORDERED: LR 1,000 ML ONE (07:22)
[2018-12-16] MEDS ORDERED: SODIUM CHLORIDE 0.9% ONE (07:22)
[2018-12-16] MEDS ORDERED: XYLOCAINE-MPF 2% ONE (07:47)
[2018-12-16] MEDS ORDERED: ROBINUL ONE ×3 (07:47→07:52)
[2018-12-16] MEDS ORDERED: QUELICIN (DOSE) ONE (07:47)
[2018-12-16] MEDS ORDERED: DIPRIVAN 1% ONE (07:49)
[2018-12-16] MEDS ORDERED: FENTANYL ONE (07:49)
[2018-12-16] MEDS ORDERED: NEOSPORIN OINTMENT PACKET ONE (08:03)
[2018-12-16] MEDS ORDERED: ZEMURON ONE (08:06)
[2018-12-16] MEDS ORDERED: KETAMINE ONE (08:10)
[2018-12-16] MEDS ORDERED: TORADOL ONE (08:16)
[2018-12-16] MEDS ORDERED: ZOFRAN ONE (08:16)
[2018-12-16] MEDS ORDERED: DECADRON ONE (08:16)
[2018-12-16] MEDS ORDERED: VENTOLIN HFA ONE (08:23)
[2018-12-16] MEDS ORDERED: NEOSTIGMINE ONE (08:31)
[2018-12-16] MEDS ORDERED: DUONEB (A & A) INH ONE (09:15)
[2018-12-16] MEDS: DILAUDID ONE ×2 (09:34→09:38)
--- NOTE | 2018-12-16 09:48 | OPERATIVE NOTE ---
PROCEDURE DATE: 12/16/2018 PREOPERATIVE DIAGNOSIS: Acute cholecystitis. POSTOPERATIVE DIAGNOSES: 1. Acute cholecystitis. 2. Choledocholithiasis. PROCEDURE: Laparoscopic cholecystectomy with operative cholangiogram. SURGEON: Jim Loo MD. ANESTHESIA: General. ESTIMATED BLOOD LOSS: 5 mL. COMPLICATIONS: None apparent. SPECIMENS: Gallbladder. FINDINGS: The gallbladder was very distended and full of stones. The cholangiogram revealed numerous filling defects in the distal common bile duct. The proximal hepatic radicles appeared to fill normally. I did not see any contrast enter into the duodenum. TECHNIQUE: The patient was brought to the operating room and placed supine on the table. General anesthesia was induced. She was prepped and draped in usual sterile fashion. 0.5% Marcaine with epinephrine was used to anesthetize our incisions. An 11 mm incision was made above the umbilicus in the midline. The fascia was exposed and incised sharply. Entry into the peritoneal cavity was obtained under direct vision with the Optiview device. Pneumoperitoneum was established. The camera was inserted. There was no evidence of injury to underlying structures. Three 5 mm incision ports were placed across the epigastric and right upper quadrant under direct vision per usual routine. The gallbladder was visualized and noted to be quite distended and full of stones. It was grasped with an Allis clamp and lifted up superiorly over the liver. The triangle of Calot was then dissected out with the [place] forceps and hook cautery until the critical view was obtained. The gallbladder liver junction was seen. There were only 2 structures entering the gallbladder, the cystic duct and cystic artery. The cystic duct was clipped on the gallbladder side. A ductotomy was made proximal to this with scissors. A 14-gauge Angiocath was passed through the right upper quadrant. The Taut cholangiogram catheter was passed through this into the cystic duct and held in place with a clip. The cholangiogram was performed with findings as noted above. The clip catheter, and Angiocath were removed. 3 clips were placed on the staying inside of the cystic duct. It was divided distal to these with scissors. The cystic artery was clipped proximally and distally and incised between with scissors. The gallbladder was removed from the liver bed using hook cautery obtaining hemostasis along the way. The gallbladder was attempted to be placed in EndoCatch bag but it was too large to completely be submerged in the bag. I then brought the string of the bag and gallbladder up through the umbilical port site. We removed the ports and desufflated the abdomen. The skin of the umbilical incision was elongated with a knife. The fascia was then also incised a couple cm cephalad and this allowed us to remove the gallbladder and bag. I then closed the umbilical fascia with a running 0 Vicryl. The skin was closed with a running 4-0 subcuticular Monocryl and Steri-Strips. There were no apparent complications. She was awakened in stable condition and transferred to the recovery room. cc: Jim Loo MD
--- NOTE | 2018-12-16 09:55 | GASTROENTEROLOGY CONSULTATION ---
DATE: 12/16/2018 REASON FOR CONSULTATION: Choledocholithiasis. HISTORY OF PRESENT ILLNESS: Ms. Katina Joseph is a 43-year-old woman with past medical history of hypertension who presented on 12/14/2018 with 4 days of nausea, vomiting, epigastric pain. Diagnosed with acute cholecystitis on presentation. She reports being in her usual state of health prior to presentation. She denies any prior history of similar symptoms. She does not drink any alcohol. She does smoke 1 pack per day of tobacco. No change in bowel habits, melena, hematemesis. She is not on any blood thinners. During her cholecystectomy Dr. Treadwell did an intraoperative cholangiogram that revealed numerous small stones in the distal common bile duct. She is currently in the PACU in recovery. REVIEW OF SYSTEMS: As per HPI, otherwise 12 point review of systems is negative. PAST MEDICAL HISTORY: History of tubal and hypertension. PAST SURGICAL HISTORY: Surgery for tubal , bilateral tubal ligation, surgery on her feet, laparoscopic cholecystectomy today on 12/16/2018. ALLERGIES: Latex. SOCIAL HISTORY: She smokes 1 pack per day of tobacco. No alcohol or drug use. FAMILY HISTORY: Grandmother had gallstones. HOME MEDICATIONS: Robaxin. PHYSICAL EXAMINATION: VITAL SIGNS: Temperature 97.6 degrees, heart rate 78, respiratory rate 25, blood pressure 114/63, O2 saturation 92%. General: Patient is awake, alert, in no acute distress. HEENT: Sclerae anicteric. Moist mucous membranes. Neck: Supple. No JVD. Cardiac: Regular rate and rhythm. No murmurs, rubs, or gallops. Lungs: Clear to auscultation anteriorly. No wheezing. Abdomen: Incision sites with Steri-Strips. Abdomen is nondistended. Hypoactive bowel sounds. Mildly tender throughout. Extremities: No clubbing, cyanosis, or edema. Neurologic: Nonfocal. LABS: White count of 13.8 from 11.58 on 12/14/2018, hemoglobin 13.0, platelets of 253,000. Sodium 135, potassium 3.9, chloride 105, bicarb 22, BUN 7, creatinine 0.6, glucose 87, total bilirubin of 3.0 from 3.7, GGT of 480, AST of 228 from 341 on 12/14/2018, ALT of 500 from 656, alkaline phosphatase of 390 from 472. Albumin is 3.5, total protein is 7.3. UA shows trace white blood cells, 2+ bilirubin, trace protein. Urine tox positive for opiates and benzodiazepines. Rapid flu is negative. IMAGING: Ultrasound on 12/14/2018 shows overly distended gallbladder containing multiple small stones but no wall thickening, fatty liver. Chest x-ray on 12/14/2018 was unremarkable. ASSESSMENT AND PLAN: Ms. Katina Joseph is a 43-year-old woman who presented with nausea, vomiting, abdominal pain and found to have acute cholecystitis and choledocholithiasis cholecystectomy today. She does have some abnormal LFTs that appear to be downtrending and leukocytosis concerning for possible infection. She is currently on Zosyn for antibiotics and IV fluids. We will plan for ERCP tomorrow with Dr. Duke. We will keep her NPO over midnight. Continue antibiotics, pain medications, IV fluids. We will follow with you. Please call with any questions or concerns.
[2018-12-16] MEDS ORDERED: NORCO-10 PO PRN (10:13)
--- NOTE | 2018-12-16 12:37 | PROGRESS NOTE ---
DATE: 12/16/2018 SUBJECTIVE: Ms Joseph is a little bit lethargic at the present time. She underwent laparoscopic cholecystectomy this morning with operative cholangiogram. Cholangiogram revealed numerous filling defects in the distal common bile duct. Proximal hepatic radicles appeared to fill normally. She had presented with nausea and vomiting and abdominal pain, found to have cholecystitis, choledocholithiasis. Cholecystectomy was done. She had some abnormal LFTs, appear to be downtrending, leukocytosis, concern for possible infection, so she is on Zosyn. Plan is for ERCP I think tomorrow with Dr. Duke. Keep her n.p.o. after night. Continue current antibiotics. OBJECTIVE: Vital signs: Temperature 97.8 degrees, pulse 59, respirations 16, blood pressure 128/72. Eyes: Pupils are equal round. Lungs: Clear in all lung arce. Cardiovascular: Regular rhythm and rate without murmur or S3. Abdomen: Soft. Skin: Warm and dry. Urine output is 2500 mL. ASSESSMENT AND PLAN: Status post laparoscopic cholecystectomy. Plan is for ERCP tomorrow per Dr. Duke. Seems to be doing well. We will check Chem 22 and CBC again in the morning. Liver enzymes have been trending down including alkaline phosphatase, AST and ALT. We will check GGT as well and total bilirubin in the morning. cc: Luis Paulino MD
--- NOTE | 2018-12-16 13:15 | Diag Imaging Result Doc PS360 ---
EXAM: OPERATIVE CHOLANGIOGRAM INDICATION: GALLBLADDER DX TECHNIQUE: COMPARISON: None. FINDINGS: A single spot fluoroscopic view of the opacified common bile duct was provided, which were performed intraoperatively during cholecystectomy by Dr. Jim Loo. There are several filling defects identified in the distal common bile duct likely representing ductal stones. The diameter of the common bile duct is also somewhat increased. No contrast is seen entering small bowel. IMPRESSION: As above. Please correlate with live fluoroscopic imaging. Electronically signed by Hill Madrid 12/16/2018 1:13 PM
[2018-12-16 13:51] LABS: HEPATITIS PROFILE ACUTE SEE COMMENTS
[2018-12-16] MEDS: SODIUM CHLORIDE 0.9% INJ SCH (20:45)
[2018-12-16] MEDS: PROTONIX IV SCH (20:45)
[2018-12-16] MEDS: PERIDEX MT SCH (20:45)
[2018-12-17] MEDS: ZOSYN 3.375 GM in NS 50 ML IV SCH ×4 (00:35→18:06)
[2018-12-17] MEDS: ZOFRAN IV PRN ×4 (01:04→18:01)
[2018-12-17] MEDS: MORPHINE IV PRN ×6 (01:04→22:05)
[2018-12-17] MEDS: NS 1,000 ML IV SCH ×2 (02:33→10:41)
[2018-12-17 06:39] LABS: AGAP 10; ALB/GLOB RATIO 0.9; ALBUMIN 3.2 g/dL (3.5-5.0); ALKALINE PHOSPHATASE 364 U/L (32-104); BUN 4 mg/dL (8-22); CALCIUM 8.7 mg/dL (8.8-10.2); CHLORIDE 108 mmol/L (98-107); COSMO 279; CREATININE 0.6 mg/dL (0.5-0.9); ESTIMATED GFR > 60; GLUCOSE 110 mg/dL (70-104); GOT 317 U/L (10-30); GPT 406 U/L (10-36); POTASSIUM 3.8 mmol/L (3.5-5.1); SODIUM 141 mmol/L (136-145); TCO2 23 mmol/L (25-35); TOTAL BILIRUBIN 1.96 mg/dL (0.20-1.00); TOTAL PROTEIN 6.7 g/dL (6.3-8.3)
[2018-12-17] MEDS: PERIDEX MT SCH ×2 (09:32→22:00)
[2018-12-17 09:57] LABS: BASO# 0.03 X1000 (0.0-0.2); BASO% 0.2 % (0.0-0.8); EOS% 0.7 % (0.0-10.0); HEMATOCRIT 30.9 % (37.0-47.0); HEMOGLOBIN 10.4 g/dL (12.0-16.0); IMM GRAN# 0.04 X1000 (0.0-0.04); IMM GRAN% 0.3 % (0.0-0.5); LYMPH# 3.42 X1000 (1.2-3.4); LYMPH% 24.6 % (20.5-51.1); MCH 28.7 PG (27-31); MCHC 33.7 g/dL (33-37); MCV 85.1 FL (81-99); MONO# 1.12 X1000 (0.11-0.59); MONO% 8.1 % (1.7-9.3); MPV 11.4 FL (7.4-10.4); NEUT# 9.19 X1000 (1.4-6.5); NEUT% 66.1 % (42.2-75.2); PLT 241 X1000 (130-400); RBC 3.63 XMIL (4.2-5.4); RDW 15.6 % (11.5-14.5)
--- NOTE | 2018-12-17 12:06 | GASTROENTEROLOGY PROGRESS NOTE ---
DATE: 12/17/2018 ADMITTING PHYSICIAN: Dr. Luis Paulino. PRIMARY CARE DOCTOR: Dr. Geln Barlow. SUBJECTIVE: Patient resting in bed. Her family was at bedside. The patient complains of soreness in the perineal region. One of the stitches from the recent surgery has mild drainage. She denies any fevers, rigors, chills. She denies any nausea or vomiting. She has not moved her bowels. She was initially n.p.o. for ERCP today, but after discussion with Dr. Duke since her labs are trending down and she is stable, the ERCP was canceled today. We will schedule for tomorrow by Dr. Duke in the morning. I have discussed the risks, benefits, indications, alternatives to the procedure with the patient and family at bedside. All questions answered. The patient acknowledges and agreed to proceed with ERCP tomorrow. OBJECTIVE: Vital signs: Temperature 98.4 degrees, pulse rate 75, respiratory 16, blood pressure 123/68, satting 90% on room air. Body weight of 230 pounds 4 ounces. BMI 29.7 kg/m2. General Appearance: Moderately built, well-nourished, lying in bed, no acute distress. HEENT: Pale conjunctiva, mild icterus. Neck: Neck is supple. Abdomen: Has discomfort in the perineal region. No rebound or guarding. Extremities: No cyanosis, clubbing. Neurologic: Neuro romero, she is alert, awake, oriented. LABS: Hemoglobin and hematocrit is 10.4 and 30.9, white count of 13.9, platelet count of 241. Sodium 141, potassium 3.8, chloride 100, bicarbonate 23, anion gap 10. BUN of 4, creatinine 0.6, glucose of 110, calcium 8.7. Total bilirubin 0.96, AST 317, ALT 406, alkaline phosphatase 364. Total protein 6.7, albumin 3.2. The liver enzymes are trending down. Bilirubin is trending down. Urine culture showed no growth. IMPRESSION AND PLAN: 1. Choledocholithiasis as seen on intraoperative cholangiogram. In this regard, the patient is going to proceed with endoscopic retrograde cholangiopancreatography tomorrow. The risks, benefits, indications, and alternatives to the procedure were discussed with the patient and family, and all questions were answered. The patient is scheduled to have endoscopic retrograde cholangiopancreatography tomorrow with Dr. Duke. 2. She will continue intravenous pain control, intravenous antibiotics. 3. Gastrointestinal prophylaxis with proton pump inhibitors. 4. We will start on clear liquid diet today. 5. We will check complete blood count and comprehensive metabolic panel in the morning. 6. We will start on bowel regimen with Dulcolax once daily. Above plan discussed with the patient and family and all questions answered. Please call us with any further questions. cc: Shant Sharp MD
--- NOTE | 2018-12-17 13:18 | PROGRESS NOTE ---
DATE: 12/17/2018 SUBJECTIVE: Ms. Joseph is feeling much better. She is awake, alert, and oriented x3. She understands she is going to get an ERCP or EGD today. OBJECTIVE: Temperature 97.9 degrees, pulse 72, respirations 18, blood pressure 130/72. Pupils are equal and round. Lungs are clear in all lung arce. Cardiovascular exam with regular rhythm and rate without murmur or S3. Abdomen is soft. Skin is warm and dry. Urine output 3700 mL. ASSESSMENT AND PLAN: 1. Choledocholithiasis seen on intraoperative cholangiogram. The patient is going to proceed with endoscopic retrograde cholangiopancreatography today, and see if some stones could be removed or if there is any residual stones per Dr. Duke. 2. Status post laparoscopic cholecystectomy. 3. Pain appears to be well controlled. 4. Continue gastrointestinal prophylaxis. She is on clear liquids now. Plan expect we will advance that. REVIEW OF CURRENT ORDERS: She did get the flu vaccination Pneumovax. She is getting hydrocodone 10 mg q.4 hours p.r.n. pain, Robaxin 500 mg b.i.d. p.r.n., morphine still 2 mg IV q.4 hours p.r.n., normal saline 100 mL an hour, Protonix 40 mg IV q.24 hours and Zosyn 3.375 g IV q.6. We will see how we do. I guess there is potential she could go home tomorrow depending on how we are doing. cc: Luis Paulino MD
--- NOTE | 2018-12-17 15:47 | GENERAL SURGERY PROGRESS NOTE ---
DATE: 12/17/2018 SUBJECTIVE: The patient is doing okay today. She is a little sore in her abdomen. No fever or vomiting today. OBJECTIVE: Vital Signs: She is afebrile. Vital signs are stable. General: She is awake, alert, oriented, and oriented x 3. No acute distress. LABORATORY: White blood cell count 13.9, hemoglobin 10.4, hematocrit 30.9, platelet count 241,000. Electrolytes reviewed and unremarkable. Liver function tests noted to be relatively stable. Total bilirubin is a little lower at 1.9. ASSESSMENT AND PLAN: A 43-year-old female postoperative day #1 laparoscopic cholecystectomy with cholangiogram which revealed choledocholithiasis. She is planned for ERCP tomorrow. She can be discharged after the ERCP pending the results and she should follow up with me in 2 weeks. cc: Jim Loo MD
[2018-12-17] MEDS ORDERED: DULCOLAX PR SCH (21:00)
[2018-12-17] MEDS: PROTONIX IV SCH (22:00)
[2018-12-17] MEDS: SODIUM CHLORIDE 0.9% INJ SCH (22:00)
[2018-12-18] MEDS: NS 1,000 ML IV SCH ×3 (01:10→14:28)
[2018-12-18] MEDS: ZOSYN 3.375 GM in NS 50 ML IV SCH ×3 (01:10→14:28)
[2018-12-18 06:13] LABS: BASO# 0.05 X1000 (0.0-0.2); BASO% 0.5 % (0.0-0.8); EOS# 0.03 X1000 (0.0-0.7); EOS% 0.3 % (0.0-10.0); HEMATOCRIT 32.2 % (37.0-47.0); IMM GRAN# 0.03 X1000 (0.0-0.04); IMM GRAN% 0.3 % (0.0-0.5); LYMPH# 3.35 X1000 (1.2-3.4); LYMPH% 35.1 % (20.5-51.1); MCH 28.6 PG (27-31); MCHC 34.2 g/dL (33-37); MCV 83.9 FL (81-99); MONO# 0.63 X1000 (0.11-0.59); MONO% 6.6 % (1.7-9.3); MPV 10.3 FL (7.4-10.4); NEUT# 5.46 X1000 (1.4-6.5); NEUT% 57.2 % (42.2-75.2); PLT 279 X1000 (130-400); RBC 3.84 XMIL (4.2-5.4); RDW 15.4 % (11.5-14.5); WBC 9.55 X1000 (4.8-10.8)
[2018-12-18 06:45] LABS: AGAP 12; ALB/GLOB RATIO 1.4; ALBUMIN 3.6 g/dL (3.5-5.0); ALKALINE PHOSPHATASE 509 U/L (32-104); BUN 3 mg/dL (8-22); CALCIUM 8.9 mg/dL (8.8-10.2); CHLORIDE 104 mmol/L (98-107); COSMO 278; CREATININE 0.6 mg/dL (0.5-0.9); ESTIMATED GFR > 60; GLUCOSE 102 mg/dL (70-104); GOT 403 U/L (10-30); GPT 563 U/L (10-36); SODIUM 141 mmol/L (136-145); TCO2 25 mmol/L (25-35); TOTAL BILIRUBIN 2.17 mg/dL (0.20-1.00); TOTAL PROTEIN 6.2 g/dL (6.3-8.3)
[2018-12-18] MEDS: PERIDEX MT SCH (08:19)
[2018-12-18] MEDS: MORPHINE IV PRN (08:19)
[2018-12-18] MEDS ORDERED: DIPRIVAN 1% ONE ×4 (10:17→11:52)
[2018-12-18] MEDS ORDERED: FENTANYL ONE (11:44)
--- NOTE | 2018-12-18 12:25 | Diag Imaging Result Doc PS360 ---
EXAM: ERCP-BILIARY AND PANCREATIC HISTORY: CBD stones TECHNIQUE: ERCP, seven images COMPARISON: None. FINDINGS: Contrast fills a dilated common bile duct. A wire basket were placed with stone removal. A stent was then placed. IMPRESSION: Common bile duct stent placed. Electronically signed by Lokesh Still 12/18/2018 12:23 PM
--- NOTE | 2018-12-18 12:41 | OPERATIVE NOTE ---
PROCEDURE DATE: 12/18/2018 PROCEDURES: 1. Endoscopic retrograde cholangiopancreatography. 2. Endoscopic sphincterotomy. 3. Basket removal of stones. 4. Endoscopic stent placement. PREOPERATIVE DIAGNOSIS: Choledocholithiasis. POSTOPERATIVE DIAGNOSIS: Multiple stones in the common bile duct, removed. DESCRIPTION OF PROCEDURE: After informed consent and adequate intravenous sedation, the scope was introduced through the esophagus, stomach and duodenum. It appears the ampulla looks very prominent and seems to be impacted. While doing a cholangiogram, a couple of stones fell down which are small. At this point, cholangiogram revealed multiple stones in the distal bile duct. A wide sphincterotomy was done. The stones were removed and the bile duct was lavaged. At the end cholangiogram was clear. At this point, at 7 cm 10-Irish stent was deployed. The scope was withdrawn. The patient tolerated the procedure well without any immediate complications. I will see her in the office in 3 weeks. cc: MD Jim Paige MD
[2018-12-18 15:30] VITALS: BP 135/73
--- NOTE | 2018-12-18 15:34 | DISCHARGE SUMMARY ---
ADMISSION DATE: 12/16/2018 DISCHARGE DATE: 12/18/2018 Physician is Glen Balrow. The patient presented on 12/14/2018 abdominal pain, back pain, came to the emergency room 43-year- old history of hypertension complaining of left flank pain, no dysuria, is having cough and congestion, also reports she is having nausea, vomiting, abdominal pain. Her symptoms were in the sense all over the place but in the end mainly abdominal discomfort. Denies any regular alcohol use, was admitted with symptomatic cholelithiasis. Started IV fluids and transferred here from [place] to [place]. Dr. Loo evaluated and he performed a laparoscopic cholecystectomy on 12/16 noted that there was a very distended full of stones, cholangiogram revealed numerous filling defect defects in distal common bile duct and proximal hepatic radicles appeared to fill normally so ERCP was done on 12/18, multiple stones. These were removed per Dr. Duke and he felt like she could go home today so she wanted to go home this evening. DISCHARGE MEDICATIONS: I will give her some [place] 10s q.4 hours p.r.n., she is on Robaxin 500 mg b.i.d. p.r.n. and I will give her Protonix 40 mg p.o. daily for 4 weeks. FOLLOWUP: With her primary care physician. Follow up with Dr. Loo in a couple weeks. cc: Luis Paulino MD
[2018-12-18] MEDS ORDERED: PERIDEX MT SCH (21:00)
== END 2018-12-18 16:24 | disposition home or self-care (01) | DRG 418 ==
LOC: P.ED 15:21 → 4N 20:20 → INTOOBSV 20:20 → SUATTDRO 20:20
PROVIDERS: ATTEND Emergency Medicine
PROC: EN.ERCP (2018-12-18 11:10)
CPT/HCPCS: 71020; 71046; 74019; 74020; 74300; 74330; 76705; 80053; 80074; 80104; 80196; 80301; 80305; 80307; 80324; 80329; 81001; 82003; 82977; 83735; 85025; 87088; 87275; 87276; 87804; 88304; 94640; 96361; 96365; 99285; A9270; C1751; C2617; C9113; G0431; G0434; G0477; G0480; G6038; G6039; J0132; J0330; J1100; J1170; J1885; J2270; J2405; J2543; J3010; J7030; J7060; J7120; J7506; J7512; Q9966; Q9967; S0164